=== PATIENT | female | born 1990 | race Caucasian/White ===

== ENCOUNTER 2021-04-21 06:06 | Day surgery (SDC) | payer MEDICARE ==
[~2021-04-21] VITALS: Ht 157.5 cm; Wt 41.3 kg
[~2021-04-21 06:06] MED LIST: DEPO-PROVER150 MG/M1 IM; ZANTAC150 MG PO
--- NOTE | 2021-04-21 06:35 | NUR ---
PER PATIENT'S PARENTS-- PATIENT HAD ANTIBODY TEST DONE FOR COVID DUE TO EXPOSURE IN NOVEMBER 2020. TEST CAME BACK POSTIVE FOR ANTIBODIES. PATIENT HAS NOT BEEN VACCINATED.
[2021-04-21] MEDS ORDERED: MASON NATURAL2000 IU PO (07:02)
[2021-04-21] MEDS ORDERED: GALZIN25 MG PO (07:02)
[2021-04-21] MEDS ORDERED: CULTURELLE1 EAC1 PO (07:03)
[2021-04-21] MEDS ORDERED: CRANBERRY250 MG PO (07:03)
[2021-04-21] MEDS ORDERED: PEPTO BISM525 MG/15 PO (07:04)
[2021-04-21 07:56] VITALS: BP 107/67; PULSE 73; TEMP 98
[2021-04-21 08:17] VITALS: BP 69/25; PULSE 47; TEMP 97.7
[2021-04-21 08:37] VITALS: BP 87/66; PULSE 77
--- NOTE | 2021-04-21 08:55 | NUR ---
0755 Pt returns from endo procedure via cart. Pt ambulates with RN assist from cart to recliner. Parents present in room. Pt alert and oriented as preop. Monitors on and alarms set. Call light within reach. Pt requests water. Pt in no apparent distress, and parents agree. Report received from [facility]. 0810 Pt taking water well. No complications noted or mentioned. 0845 Discharge instructions given to pt and parents. All questions answered to their satisfaction. 0855 Pt transferred out of hospital via wheelchair and this RN assist to private vehicle driven by parents.
[2021-04-21 10:18] VITALS: BP 88/56; PULSE 75
== END 2021-04-21 08:55 | disposition home or self-care (01) ==
LOC: SDCO 06:06
DX: K22.2 Esophageal obstruction (principal); R62.50 Unspecified lack of expected normal physiological development in childhood; Q60.0 Renal agenesis, unilateral; K59.09 Other constipation; K52.9 Noninfective gastroenteritis and colitis, unspecified; Q42.3 Congenital absence, atresia and stenosis of anus without fistula; Q39.1 Atresia of esophagus with tracheo-esophageal fistula; Z79.899 Other long term (current) drug therapy
CPT/HCPCS: C1726; J2704; J7120